=== PATIENT | male | born 1970 | race African-American/Black ===

== ENCOUNTER 2016-10-20 12:34 | Day surgery (SDC) | payer OTHER ==
[~2016-10-20 12:34] MED LIST: AMLODIPINE BESYL5 MG PO; ASPIR 8181 M1 PO; CLOPIDOGREL75 MG PO; FUROSEMIDE20 MG PO; HYDRALAZINE HCL25 MG PO; LASIX40 MG PO; LISINOPRIL40 MG PO; MELOXICAM7.5 MG PO; METOPROLOL SUC200 MG PO; PRAVASTATIN SOD40 MG PO; TOPROL XL100 MG PO; TRAMADOL HCL50 MG PO; ZESTORETIC 20-1 EAC1 PO; ZESTRIL10 MG PO; [UNRECOGNIZED DRUG - OTHER] PO
== END 2016-10-20 16:45 | disposition home or self-care (01) ==
LOC: CATH 12:34
DX: I49.3 Ventricular premature depolarization (principal); I25.10 Atherosclerotic heart disease of native coronary artery without angina pectoris; I42.0 Dilated cardiomyopathy; I12.9 Hypertensive chronic kidney disease with stage 1 through stage 4 chronic kidney disease, or unspecified chronic kidney disease; I71.2 Thoracic aortic aneurysm, without rupture; N18.9 Chronic kidney disease, unspecified; Z86.73 Personal history of transient ischemic attack (TIA), and cerebral infarction without residual deficits; Z79.82 Long term (current) use of aspirin; Z79.01 Long term (current) use of anticoagulants
CPT/HCPCS: 71010; 93005; C1894; C1899; J0690; J1200; J2250; J3010; S0020

== ENCOUNTER 2016-12-28 00:56 | Inpatient (IN) | payer OTHER ==
[~2016-12-28] VITALS: Ht 185.4 cm; Wt 107.4 kg
[2016-12-28] VITALS (7 sets, daily range): BP systolic 101–150; BP diastolic 57–85
[2016-12-28 02:00] LABS: HEMATOCRIT 38.3 % (38.0-50.0); MCH 30.1 PG (29.0-34.0); MCHC 33.2 G/DL (30.0-36.0); MCV 90.8 FL (86-99); MEAN PLAT.VOLUME 11.2 uM^3 (9.0-12.4); PLATELET COUNT 165 K/uL (156-360); RBC DIS.WIDTH-CV 13.1 % (11.8-14.6); RED BLOOD COUNT 4.22 M/uL (4.00-5.50); WHITE BLOOD COUNT 4.7 K/uL (4.1-10.2)
[2016-12-28 02:08] LABS: CHLORIDE 105 mEq/L (99-109); POTASSIUM 3.6 mEq/L (3.7-5.4); SODIUM 140 mEq/L (136-147)
[2016-12-28 02:09] LABS: MAGNESIUM 1.9 mg/dL (1.3-2.7)
[2016-12-28 02:10] LABS: INTER. NORMALIZED RATIO 1.1; PROTHROMBIN TIME 11.5 (9.2-11.2); PTT 22.6 (25-32)
[2016-12-28 02:11] LABS: GLUCOSE 145 mg/dL (70-99)
[2016-12-28 02:12] LABS: ANION GAP 11 MEQ/L (2-14)
[2016-12-28 02:13] LABS: TOTAL BILIRUBIN 0.3 mg/dL (0.0-1.0)
[2016-12-28 02:14] LABS: ALKALINE PHOSPHATASE 44 IU/L (3-129)
[2016-12-28 02:15] LABS: GFR ESTIMATE (CALCULATED) > 59 mL/min/
[2016-12-28 02:16] LABS: UREA NITROGEN (BUN) 19 mg/dL (9-23)
[2016-12-28 02:18] LABS: LIPASE 16 U/L (1.0-51.0)
[2016-12-28 02:26] LABS: TROP-I INTERPRETATION NEGATIVE; TROPONIN-I 0.12 ng/mL (0.0-0.30)
[2016-12-28] MEDS ORDERED: TIZANIDINE HCL2 MG PO (02:36)
[2016-12-28] MEDS ORDERED: CEPHALEXIN500 MG PO (02:36)
[2016-12-28] MEDS ORDERED: ENTRESTO 97 MG1 EACH PO (02:37)
[2016-12-28] MEDS ORDERED: SERTRALINE HCL50 MG PO (02:38)
[2016-12-29 00:15] VITALS: BP 114/67
[2016-12-29 05:36] VITALS: BP 121/69
[2016-12-29 07:45] VITALS: BP 118/73
[2016-12-29 08:16] LABS: CHLORIDE 106 mEq/L (99-109); SODIUM 141 mEq/L (136-147)
[2016-12-29 08:20] LABS: ANION GAP 10 MEQ/L (2-14); GLUCOSE 95 mg/dL (70-99)
[2016-12-29 08:22] LABS: GFR ESTIMATE (CALCULATED) > 59 mL/min/
[2016-12-29 08:23] LABS: UREA NITROGEN (BUN) 17 mg/dL (9-23)
[2016-12-29 11:31] VITALS: BP 121/78
[2016-12-29] MEDS ORDERED: CORDARONE200 MG PO (12:53)
[2016-12-29] MEDS ORDERED: AMIODARONE HCL200 MG PO (12:53)
== END 2016-12-29 13:59 | disposition home or self-care (01) | DRG 309 ==
LOC: EME → EDBD 00:56 → 4EAST 03:42 → EDOF 03:42 → 4EAST 04:36
PROVIDERS: Emergency Medicine; Physician Assistant Medical
DX: I49.01 Ventricular fibrillation (principal); I42.0 Dilated cardiomyopathy; I11.0 Hypertensive heart disease with heart failure; I50.22 Chronic systolic (congestive) heart failure; I47.2 Ventricular tachycardia; E78.5 Hyperlipidemia, unspecified; E66.3 Overweight; Z68.31 Body mass index [BMI] 31.0-31.9, adult; Z95.810 Presence of automatic (implantable) cardiac defibrillator; Z86.73 Personal history of transient ischemic attack (TIA), and cerebral infarction without residual deficits; Z79.02 Long term (current) use of antithrombotics/antiplatelets; Z79.82 Long term (current) use of aspirin
CPT/HCPCS: 71020; 80048; 80053; 83690; 83735; 83880; 84100; 84443; 84484; 85027; 85610; 85730; 93005; 99281; 99285; J1650; J1885; J1940

== ENCOUNTER 2017-10-23 17:38 | Inpatient (IN) | payer SELFPAY ==
[~2017-10-23] VITALS: Ht 185.4 cm; Wt 99.0 kg
[~2017-10-23 17:38] MED LIST changes: +AMIODARONE HCL200 MG PO; +CEPHALEXIN500 MG PO; +CORDARONE200 MG PO; +ENTRESTO 97 MG1 EACH PO; +SERTRALINE HCL50 MG PO; +TIZANIDINE HCL2 MG PO
[2017-10-23 18:35] LABS: HEMOGLOBIN 15.9 G/DL (12.5-16.6); MCHC 33.8 G/DL (30.0-36.0); MCV 88.7 FL (86-99); RBC DIS.WIDTH-CV 12.9 % (11.8-14.6); RBC DIS.WIDTH-SD 41.7 % (39-53); WHITE BLOOD COUNT 3.9 K/uL (4.1-10.2)
[2017-10-23 18:59] LABS: CHLORIDE 104 mEq/L (99-109); SODIUM 139 mEq/L (136-147)
[2017-10-23 19:01] LABS: GLUCOSE 103 mg/dL (70-99)
[2017-10-23 19:05] LABS: CREATININE 1.7 mg/dL (0.6-1.3); GFR ESTIMATE (CALCULATED) 56 mL/min/ (58.99-99999)
[2017-10-23 19:06] LABS: UREA NITROGEN (BUN) 22 mg/dL (9-23)
[2017-10-23 19:39] LABS: INTER. NORMALIZED RATIO 1.2
[2017-10-23 19:41] LABS: PTT 25.9 SEC (25-37)
[2017-10-23 19:43] LABS: TROP-I INTERPRETATION NEGATIVE; TROPONIN-I 0.05 ng/mL (0.0-0.30)
[2017-10-23 19:50] LABS: PLAT.SUFFICIENCY ADEQUATE; PLATELET COUNT 232 K/uL (156-360)
[2017-10-23] MEDS ORDERED: TOPROL XL100 MG PO (20:20)
[2017-10-23] MEDS ORDERED: PRAVASTATIN SOD40 MG PO (20:21)
[2017-10-23 22:01] LABS: BILIRUBIN NEGATIVE; BLOOD NEGATIVE; GLUCOSE (STRIP) NEGATIVE; KETONES NEGATIVE; LEUKOCYTES NEGATIVE; NITRITE NEGATIVE; PROTEIN (STRIP) 30
[2017-10-23 22:06] LABS: APPEARANCE CLEAR ((CLEAR)); COLOR DK YELLOW ((YELLOW)); UCUL ADDED? NO
[2017-10-23 22:07] LABS: HDL CHOLESTEROL 54 MG/DL (Desirable>=40); LDL CHOLESTEROL 81 mg/dL (Desirable<100); NON-HDL CHOLESTEROL 99 mg/dL (Desirable<160); TOTAL CHOLESTEROL 153 mg/dL (Desirable<200); TRIGLYCERIDES 88 MG/DL (Normal: <150)
[2017-10-24 00:46] VITALS: BP 102/64
[2017-10-24 00:57] LABS: TROP-I INTERPRETATION NEGATIVE; TROPONIN-I 0.04 ng/mL (0.0-0.30)
[2017-10-24 04:00] VITALS: BP 107/58
[2017-10-24 07:24] LABS: TROP-I INTERPRETATION NEGATIVE; TROPONIN-I 0.05 ng/mL (0.0-0.30)
[2017-10-24 08:29] VITALS: BP 115/67
[2017-10-24 08:37] LABS: CHLORIDE 106 MEQ/L (99-109); CREATININE 1.3 MG/DL (0.6-1.3); GFR ESTIMATE (CALCULATED) > 59 mL/min/ (58.99-99999); GLUCOSE 89 mg/dL (70-99); POTASSIUM 3.8 MEQ/L (3.7-5.4); SODIUM 142 MEQ/L (136-147); UREA NITROGEN (BUN) 21 mg/dL (9-23)
[2017-10-24 08:38] LABS: FOLIC ACID (FOLATE) 13.8 NG/ML (5.0-22.0)
[2017-10-24 08:47] LABS: THYROTROPIN (TSH) 3.1 MIU/L (0.4-5.5)
[2017-10-24 11:05] VITALS: BP 113/72
[2017-10-24 13:57] LABS: HEMOGLOBIN A1c (GLYCOHEMOGLOB) 5.5 % (Below 5.7)
[2017-10-24 15:01] VITALS: BP 107/71
== END 2017-10-24 18:00 | disposition home or self-care (01) | DRG 101 ==
LOC: EME 17:38 → EDOF 20:53 → ENRESERV 21:02 → 5SOUTH 23:14 → ENPENDDIS 10-24 17:04 → 5SOUTH 10-24 18:00
PROVIDERS: Emergency Medicine; Hospitalist
DX: G40.89 Other seizures (principal); E78.5 Hyperlipidemia, unspecified; I11.0 Hypertensive heart disease with heart failure; I50.22 Chronic systolic (congestive) heart failure; I42.0 Dilated cardiomyopathy; N17.9 Acute kidney failure, unspecified; Z86.73 Personal history of transient ischemic attack (TIA), and cerebral infarction without residual deficits; Z95.0 Presence of cardiac pacemaker; Z95.810 Presence of automatic (implantable) cardiac defibrillator; Z79.82 Long term (current) use of aspirin; Z79.02 Long term (current) use of antithrombotics/antiplatelets
CPT/HCPCS: 70450; 71046; 80048; 80048 91; 80061; 81003; 82607; 82746; 83036; 84443; 84484; 85027; 85610; 85730; 93005; 93880; 99281; 99285; J1650; J7030

== ENCOUNTER 2018-03-10 18:59 | Emergency (ER) | payer OTHER ==
[~2018-03-10] VITALS: Ht 185.4 cm; Wt 100.3 kg
[2018-03-10 21:08] LABS: HEMATOCRIT 35.2 % (38.0-50.0); HEMOGLOBIN 12.4 G/DL (12.5-16.6); MCH 30.8 PG (29.0-34.0); MCHC 35.2 G/DL (30.0-36.0); MCV 87.3 FL (86-99); PLATELET COUNT 159 K/uL (156-360); RBC DIS.WIDTH-SD 38.8 % (39-53); RED BLOOD COUNT 4.03 M/uL (4.00-5.50); WHITE BLOOD COUNT 5.3 K/uL (4.1-10.2)
[2018-03-10 21:14] LABS: CHLORIDE 105 mEq/L (99-109); POTASSIUM 3.9 mEq/L (3.7-5.4); SODIUM 140 mEq/L (136-147)
[2018-03-10 21:15] LABS: INTER. NORMALIZED RATIO 1.1
[2018-03-10 21:16] LABS: GLUCOSE 98 mg/dL (70-99)
[2018-03-10 21:18] LABS: PTT 25.5 SEC (25-37)
[2018-03-10 21:20] LABS: CREATININE 1.3 mg/dL (0.6-1.3); GFR ESTIMATE (CALCULATED) > 59 mL/min/ (58.99-99999)
[2018-03-10 21:21] LABS: UREA NITROGEN (BUN) 12 mg/dL (9-23)
[2018-03-10] MEDS ORDERED: FLEXERIL10 MG PO (21:30)
[2018-03-10] MEDS ORDERED: PEN-VEE K,VEET500 MG PO (21:30)
[2018-03-10 21:48] VITALS: BP 144/103
== END 2018-03-10 21:49 | disposition home or self-care (01) ==
LOC: EME 18:59
PROVIDERS: Physician Assistant
DX: S09.90XA Unspecified injury of head, initial encounter (principal); M62.838 Other muscle spasm; K04.7 Periapical abscess without sinus; W01.0XXA Fall on same level from slipping, tripping and stumbling without subsequent striking against object, initial encounter; Y93.89 Activity, other specified; I50.9 Heart failure, unspecified; Z86.73 Personal history of transient ischemic attack (TIA), and cerebral infarction without residual deficits; Z79.02 Long term (current) use of antithrombotics/antiplatelets; Z79.82 Long term (current) use of aspirin
CPT/HCPCS: 70450; 72125; 80048; 85027; 85610; 85730